=== PATIENT | male | born 1980 | race Hispanic/Latino ===

== ENCOUNTER 2024-01-02 11:14 | Emergency (ER) | payer SELFPAY ==
--- OUTSIDE RECORDS SUMMARY | 2024-01-02 11:16 | XMS REPORT | Continuity of Care Document ---
Author Name Unknown Address [address] [place] [address]. 1 [address] [place], [place] [id number] [place] [address] [facility] Address [address] [place] [address] [address] [place] [address] Care Team Providers Care Moccasin Sewer Name Role Phone Unavailable Unavailable Unavailable Encounters Start Date/Time End Date/Time Encounter Type Admission Type Attending Clinicians [facility] Care Department Encounter ID Source 2023-10-11 10:27:17 2023-10-11 10:27:17 Outpatient [facility] 17 Dilip Elizabeth 2023-10-10 15:45:44 2023-10-10 15:45:44 Outpatient [facility] 16 Dilip Elizabeth
--- NOTE | 2024-01-02 13:39 | RAD REPORT ---
EXAM DESCRIPTION: RAD - Chest Single View - 01/02/2024 1:34 pm CLINICAL HISTORY: SWELLING Chest pain. COMPARISON: <Comparisons> FINDINGS: Portable technique limits examination quality. The lungs are grossly clear. The heart is normal in size. No displaced fractures. IMPRESSION: No acute intrathoracic process suspected.
[2024-01-02 15:00] LABS: Urine Bilirubin NEGATIVE (Negative); Urine Blood Negative (Negative); Urine Clarity Clear (Clear); Urine Color Light-Yellow (Yellow); Urine Glucose 1+ (Negative); Urine Ketones NEGATIVE (Negative); Urine Microscopic Reflex YN NO UMIC; Urine Nitrite NEGATIVE (Negative); Urine Protein NEGATIVE (Negative); Urine Urobilinogen Normal (Normal)
[2024-01-02 15:05] LABS: Absolute Eosinophils 0.5 K/uL (0-0.5); Absolute Monocytes 0.5 K/uL (0.1-1.3); Absolute Neutrophil 4.1 K/uL (1.8-8.0); Basophils % 0.7 % (0-1.3); Eosinophils % 6.3 % (0-4.4); Hematocrit 45.4 % (39.6-49.0); Hemoglobin 15.4 g/dL (13.6-17.9); Lymphocytes % 28.4 % (15.3-44.8); MCH 28.3 pg (27.0-35.0); MCHC 33.9 g/dL (32.0-36.0); MCV 83.5 fL (80-100); MPV 8.3 fL (7.6-11.3); Monocytes % 7.2 % (3.3-12.3); Neutrophils % 57.4 % (41.7-73.7); Platelets 260 thou/uL (152-406); RBC Red Blood Cell Count 5.44 M/uL (4.33-5.43); Red Cell Distribution Width 13.9 % (12.1-15.2)
[2024-01-02 15:23] LABS: Albumin 3.7 g/dL (3.4-5.0); Albumin/Globulin Ratio 0.9 (1.1-1.8); Anion Gap 5.5 mEq/L (5.0-15.0); Bilirubin Direct 0.1 mg/dL (0-0.2); Bilirubin Indirect, Calculated 0.2 mg/dL (0.2-0.8); Bilirubin Total 0.3 mg/dL (0.2-1.0); Magnesium 2.3 mg/dL (1.6-2.4); Potassium 3.5 mEq/L (3.5-5.1); Protein, Total 7.7 g/dL (6.4-8.2); Troponin High Sensitivity 4.9 pg/mL (<58.9)
--- NOTE | 2024-01-02 16:01 | ER ---
Nurse's Notes [facility] Name: Claudy Mauro Age: 43 yrs Sex: Male : 1980 Arrival Date: 01/02/2024 Time: 11:14 Bed 16 Private MD: Diagnosis: Dizziness and giddiness Presentation: 01/01 11:35 Chief complaint: Patient states: Swelling to hands/feet and body since Monday. ll1 +fatigue, + dizzy, no fever. Coronavirus screen: Client denies travel out of the [place] in the last 14 days. At this time, the client does not indicate any symptoms associated with coronavirus-19. Ebola Screen: Patient denies travel to an Ebola-affected area in the 21 days before illness onset. Initial Sepsis Screen: Does the patient meet any 2 criteria? No. Patient's initial sepsis screen is negative. Does the patient have a suspected source of infection? No. Patient's initial sepsis screen is negative. Risk Assessment: Do you want to hurt yourself or someone else? Patient reports no desire to harm self or others. Onset of symptoms was December 31, 2023. 11:35 Method Of Arrival: Ambulatory ll1 11:35 Acuity: KIMBERLY 3 ll1 Triage Assessment: 11:30 General: Appears in no apparent distress. uncomfortable, Behavior is calm, cooperative. rs5 Historical: - Allergies: 11:35 No Known Allergies; ll1 - PMHx: 11:35 None; ll1 - PSHx: 11:35 None; ll1 - Immunization history:: Adult Immunizations up to date. - Social history:: Smoking status: Patient reports the use of cigarette tobacco products, smokes .3 packs per day. Screenin:30 [facility] ED Fall Risk Assessment (Adult) History of falling in the last 3 months, rs5 including since admission No falls in past 3 months (0 pts) Confusion or Disorientation No (0 pts) Intoxicated or Sedated No (0 pts) Impaired Gait No (0 pts) Mobility Assist Device Used No (0 pt) Altered Elimination No (0 pt) Score/Fall Risk Level 0 - 2 = Low Risk Oriented to surroundings, Maintained a safe environment. Abuse screen: Denies threats or abuse. Nutritional screening: No deficits noted. Tuberculosis screening: No symptoms or risk factors identified. Assessment: 14:16 Reassessment: Pt arrived in room. rs5 14:17 General: Appears in no apparent distress. uncomfortable, Behavior is calm, cooperative. rs5 Pain: Complains of pain in generalized Pain currently is 3 out of 10 on a pain scale. Quality of pain is described as aching, Is continuous. Neuro: Level of Consciousness is awake, alert, obeys commands, Oriented to person, place, time, situation. Cardiovascular: Patient's skin is warm and dry. Rhythm is regular. Respiratory: Airway is patent Respiratory effort is even, unlabored, Respiratory pattern is regular, symmetrical. GI: Abdomen is round non-distended, Abd is soft and non tender X 4 quads. : No signs and/or symptoms were reported regarding the genitourinary system. EENT: No signs and/or symptoms were reported regarding the EENT system. Derm: Skin is intact, Skin is pink, warm \\T\\ dry. Musculoskeletal: Circulation, motion, and sensation intact. Range of motion: intact in all extremities. 15:20 Reassessment: No changes from previously documented assessment. rs5 16:02 Reassessment: Pt states "I feel better now and I want to leave" provider notified. rs5 16:03 Reassessment: Provider at bedside. rs5 Vital Signs: 11:35 BP 136 / 97; Pulse 104; Resp 18; Temp 97.7; Pulse Ox 99% ; Weight 104.33 kg; Height 5 ll1 ft. 2 in. ; Pain 8/10; 16:00 BP 133 / 91; Pulse 89; Resp 18; Pulse Ox 99% on R/A; rs5 11:35 Body Mass Index 42.07 (104.33 kg, 157.48 cm) ll1 11:35 Pain Scale: Adult ll1 ED Course: 11:17 Patient arrived in ED. mg5 11:35 Arm band placed on. ll1 11:37 Triage completed. ll1 12:27 Rhianna Vaz FNP-C is PHCP. kb 12:27 Phoenix Tran MD is Attending Physician. kb 13:00 No provider procedures requiring assistance completed. rs5 13:35 Chest Single View XRAY In Process Unspecified. EDMS 13:35 Inserted saline lock: 20 gauge in left antecubital area, using aseptic technique. rs5 14:06 Patient placed in an exam room, on a stretcher. ss 14:09 Tito Dueñas, RN is Primary Nurse. rs5 15:55 IV discontinued, intact, bleeding controlled, No redness/swelling at site. Pressure rs5 dressing applied. Administered Medications: 19:25 Not Given (Patient Refused): ns 0.9% 1000 ml IV at 1000 ml once rs5 Outcome: 15:55 AMA AMA form signed rs5 16:01 Discharge ordered by . kb 16:10 Patient left the ED. rs5 Signatures: Dispatcher [employer] EDMS Rhianna Vaz, INTERNET SPECIALIST-C INTERNET SPECIALIST-Sugey Moe RN RN ss Salma Schultz RN RN ll1 Tito Dueñas, RN RN rs5 Christine Kothari mg5
--- NOTE | 2024-01-02 16:01 | EDPHYS ---
Physician Documentation [facility] Name: Claudy Mauro Age: 43 yrs Sex: Male : 1980 Arrival Date: 01/02/2024 Time: 11:14 Bed 16 Private MD: ED Physician Phoenix Tran HPI: 01/01 14:01 This 43 yrs old Male presents to ER via Ambulatory with complaints of Feet kb Swelling, Hand Swelling. 14:01 Pt is a 43 year old male who presents for swelling to hands and feet and dizziness that kb started 3 days ago. Denies chest pain, shortness of breath, fever, n/v/d. States he has had swelling like this in the past, but not the dizziness. Reports dizziness occurs when he changes positions (sitting to standing) and resolved after being in the same position. Historical: - Allergies: 11:35 No Known Allergies; ll1 - PMHx: 11:35 None; ll1 - PSHx: 11:35 None; ll1 - Immunization history:: Adult Immunizations up to date. - Social history:: Smoking status: Patient reports the use of cigarette tobacco products, smokes .3 packs per day. ROS: 14:02 Constitutional: As per HPI kb Exam: 14:02 Constitutional: This is a well developed, well nourished patient who is awake, alert, kb and in no acute distress. Head/Face: Normocephalic, atraumatic. ENT: Moist Mucous membranes Cardiovascular: Regular rate Respiratory: Respirations even and unlabored. No increased work of breathing. Talking in full sentences Abdomen/GI: Soft, non-tender. No distention Skin: Warm, dry with normal turgor. Normal color. MS/ Extremity: Pulses equal, no cyanosis. Neurovascular intact. Full, normal range of motion. Neuro: Awake and alert, GCS 15, oriented to person, place, time, and situation. Moves all extremities. Normal gait. 14:02 Musculoskeletal/extremity: Extremities: grossly normal except: noted in the right hand, kb left hand, right foot and left foot: swelling, ROM: intact in all extremities, Circulation is intact in all extremities. Sensation intact. Weight bearing: able to fully bear weight, 15:05 ECG was reviewed by the Attending Physician. kb Vital Signs: 11:35 BP 136 / 97; Pulse 104; Resp 18; Temp 97.7; Pulse Ox 99% ; Weight 104.33 kg; Height 5 ll1 ft. 2 in. ; Pain 8/10; 16:00 BP 133 / 91; Pulse 89; Resp 18; Pulse Ox 99% on R/A; rs5 11:35 Body Mass Index 42.07 (104.33 kg, 157.48 cm) ll1 11:35 Pain Scale: Adult ll1 MDM: 12:27 Patient medically screened. kb 14:02 Data reviewed: vital signs, nurses notes. kb 16:02 Differential diagnosis: CHF, dehydration, electrolyte imbalance. ED course: pt elected kb to leave room prior to discussing results of diagnostics and discharge instructions. 01/01 12:54 Order name: Basic Metabolic Panel; Complete Time: 15:36 kb 01/01 12:54 Order name: CBC with Diff; Complete Time: 15:10 kb 01/01 12:54 Order name: Hepatic Function; Complete Time: 15:36 kb 01/01 12:54 Order name: Magnesium; Complete Time: 15:36 kb 01/01 12:54 Order name: Troponin High Sensitivity; Complete Time: 15:36 kb 01/01 12:54 Order name: Urinalysis w/ reflexes; Complete Time: 15:03 kb 01/01 12:54 Order name: Chest Single View XRAY; Complete Time: 13:42 kb 01/01 12:54 Order name: Cardiac monitoring; Complete Time: 19:25 kb 01/01 12:54 Order name: EKG - Nurse/Tech; Complete Time: 15:08 kb 01/01 12:54 Order name: IV Saline Lock; Complete Time: 19:25 kb 01/01 12:54 Order name: Labs collected and sent; Complete Time: 19:25 kb 01/01 12:54 Order name: NPO; Complete Time: 19:25 kb 01/01 12:54 Order name: O2 Per Protocol; Complete Time: 19:25 kb 01/01 12:54 Order name: O2 Sat Monitoring; Complete Time: 19:25 kb 01/01 12:54 Order name: Orthostatics; Complete Time: 19:25 kb 01/01 15:04 Order name: Labs - recollect needed: recollect light blue top; Complete Time: 15:54 bd EC:05 Rate is 90 beats/min. Rhythm is regular. QRS [place] is Normal. WA interval is normal at kb 124 msec. QRS interval is normal at 100 msec. QT interval is normal at 447 msec. Administered Medications: 19:25 Not Given (Patient Refused): ns 0.9% 1000 ml IV at 1000 ml once rs5 Disposition Summary: 01/02/24 16:01 Discharge Ordered Notes: Location: Home kb Condition: Stable kb Diagnosis - Dizziness and giddiness kb Followup: kb - With: Emergency Department - When: As needed - Reason: Worsening of condition Followup: kb - With: Private Physician - When: 2 - 3 days - Reason: Recheck today's complaints, Continuance of care, Re-evaluation by your physician Discharge Instructions: - Discharge Summary Sheet kb - Dehydration, Adult, [id number] kb - Dizziness, [id number] kb Forms: - Medication Reconciliation Form kb - Thank You Letter kb - Antibiotic Education kb - Prescription Opioid Use kb - Patient Portal Instructions kb - Leadership Thank You Letter kb Signatures: Dispatcher [employer] [facility] Rhianna Vaz, TANIKA-C CUSTOMER CARE TEAM COACH-Brina Guzman Lynsay, RN RN ll1 Tito Dueñas RN rs5 Corrections: (The following items were deleted from the chart) 12:55 12:55 Chest Single View+RAD.RAD.BRZ ordered. [facility] 14:03 14:02 Constitutional: This is a well developed, well nourished patient who is awake, kb alert, and in no acute distress. Head/Face: Normocephalic, atraumatic. ENT: Moist Mucous membranes Cardiovascular: Regular rate Respiratory: Respirations even and unlabored. No increased work of breathing. Talking in full sentences Abdomen/GI: Soft, non-tender. No distention Skin: Warm, dry with normal turgor. Normal color. MS/ Extremity: Pulses equal, no cyanosis. Neurovascular intact. Full, normal range of motion. Neuro: Awake and alert, GCS 15, oriented to person, place, time, and situation. Moves all extremities. Normal gait. kb
[2024-01-02 16:36] VITALS: BP 136/97; TEMP 97.7; O2SAT 99
--- NOTE | 2024-01-03 12:36 | EKG ---
Test Date: 2024-01-02 Test Time: 14:34:45 Stop Attacher: VALENTIN MEASUREMENT RESULTS: Intervals: Rate: 90 AL: 124 QRSD: 100 QT: 366 QTc: 447 Eddy: P: 16 AL: 124 QRS: 43 T: -7 INTERPRETIVE STATEMENTS: Normal sinus rhythm Normal ECG Compared to ECG 06/10/2004 20:49:00 T-wave abnormality no longer present Electronically Signed On 01-03-24 12:33:26 CDT by Fidencio Ch
== END 2024-01-02 16:10 | disposition home or self-care (01) ==
LOC: ER 11:14
DX: R42 Dizziness and giddiness (principal)
CPT/HCPCS: 36415; 71045; 80048; 80076; 81003; 83735; 84484; 85025; 93005; 99283

== ENCOUNTER 2024-07-05 11:50 | Emergency (ER) | payer OTHER, SELFPAY ==
--- OUTSIDE RECORDS SUMMARY | 2024-07-05 11:52 | XMS REPORT | Continuity of Care Document ---
Author Name Unknown Address [address] [place] [address] Gideon. [address] Address [address] [place] [address] [address] [place] [address] Care Team Providers Care Pile Driving Setter Name Role Phone Unavailable Unavailable Unavailable Encounters Start Date/Time End Date/Time Encounter Type Admission Type Attending Clinicians [facility] Facility Care Department Encounter ID Source 2023-10-11 10:27:17 2023-10-11 10:27:17 Outpatient [facility] 17 Dilip Elizabeth 2023-10-10 15:45:44 2023-10-10 15:45:44 Outpatient [facility] 16 Dilip Elizabeth
--- NOTE | 2024-07-05 12:03 | EDPHYS ---
Physician Documentation [facility] Name: Claudy Mauro Age: 44 yrs Sex: Male : 1980 Arrival Date: 07/05/2024 Time: 11:50 Bed IW2 Private MD: ED Physician Ramone Yang HPI: 07/05 15:32 This 44 yrs old Male presents to ER via Ambulatory with complaints of Facial rt Swelling. 15:32 Patient presents to the ED with swelling to the left cheek around the area of a pimple. rt Patient states that he noticed that this morning, states that the swelling is somewhat gone down. Denies double vision, dental pain. Denies other acute complaints, symptoms are mild in severity, no other aggravating or alleviating factors.. Historical: - Allergies: :59 No Known Allergies; tm6 - PMHx: :59 None; tm6 - PSHx: 11:59 None; tm6 - Immunization history:: Client reports receiving the 2nd dose of the Covid vaccine. - Infectious Disease History:: Denies. - Social history:: Smoking status: Reported history of juuling and/or vaping. Patient/guardian denies using alcohol. - Family history:: not pertinent. ROS: 15:32 Constitutional: Negative for fever, chills, and weight loss, Cardiovascular: Negative rt for chest pain, palpitations, and edema, Respiratory: Negative for shortness of breath, cough, wheezing, and pleuritic chest pain, Abdomen/GI: Negative for abdominal pain, nausea, vomiting, diarrhea, and constipation, Neuro: Negative for headache, weakness, numbness, tingling, and seizure, Exam: 15:32 Constitutional: This is a well developed, well nourished patient who is awake, alert, rt and in no acute distress. Head/Face: Normocephalic, atraumatic. Cardiovascular: Regular rate and rhythm with a normal S1 and S2. No gallops, murmurs, or rubs. Normal PMI, no JVD. No pulse deficits. Respiratory: Lungs have equal breath sounds bilaterally, clear to auscultation and percussion. No rales, rhonchi or wheezes noted. No increased work of breathing, no retractions or nasal flaring. 15:32 Head/face: Mild swelling noted to the left cheek, no areas of fluctuance. 15:32 Eyes: No conjunctival injection, extraocular muscles are intact. Vital Signs: 11:58 Pulse 93; Resp 17; Temp 97.8(O); Pulse Ox 97% on R/A; Weight 108.86 kg; Height 5 ft. 1 tm6 in. ; Pain 7/10; 11:58 BP 123 / 84; MAP 95 mmHg; tm6 11:58 Body Mass Index 45.35 (108.86 kg, 154.94 cm) tm6 11:58 Pain Scale: Adult tm6 MDM: 12:02 Patient medically screened. rt 15:32 Differential Diagnosis Facial cellulitis. Data reviewed: vital signs, nurses notes. rt Test considered but Not performed: CT: No physical exam findings consistent with orbital cellulitis, drainable abscess, CT scan is not indicated. Counseling: I had a detailed discussion with the patient and/or guardian regarding the historical points, exam findings, and any diagnostic results supporting the discharge/admit diagnosis, the need for outpatient follow up, to return to the emergency department if symptoms worsen or persist or if there are any questions or concerns that arise at home. Administered Medications: No medications were administered Disposition Summary: 07/05/24 12:03 Discharge Ordered Notes: Location: Home rt Problem: new rt Symptoms: have improved rt Condition: Stable rt Diagnosis - Facial cellulitis rt Followup: rt - With: Private Physician - When: 2 - 3 days - Reason: Discharge Instructions: - Discharge Summary Sheet rt - Cellulitis, Adult rt Forms: - Medication Reconciliation Form rt - Antibiotic Education rt - Prescription Opioid Use rt - Patient Portal Instructions rt - Leadership Thank You Letter rt Prescriptions: - Doxycycline Monohydrate 100 mg Oral Tablet - take 1 tablet ORAL route every 12 hours for 10 days; 20 tablet; Refills: 0, rt Product Selection Permitted Signatures: Ramone Yang MD MD rt Meme Casper RN RN tm6
--- NOTE | 2024-07-05 12:03 | ER ---
Nurse's Notes [facility] Name: Claudy Mauro Age: 44 yrs Sex: Male : 1980 Arrival Date: 07/05/2024 Time: 11:50 Bed IW2 Private MD: Diagnosis: Facial cellulitis Presentation: 07/05 11:58 Chief complaint: Patient states: woke up with left sided facial swelling. When I put tm6 pressure on it, it hurts. Coronavirus screen: Client denies travel out of the [place] in the last 14 days. Ebola Screen: Patient negative for fever greater than or equal to 101.5 degrees Fahrenheit, and additional compatible Ebola Virus Disease symptoms Patient denies exposure to infectious person. Patient denies travel to an Ebola-affected area in the 21 days before illness onset. No symptoms or risks identified at this time. Initial Sepsis Screen: Does the patient meet any 2 criteria? No. Patient's initial sepsis screen is negative. Does the patient have a suspected source of infection? No. Patient's initial sepsis screen is negative. Risk Assessment: Do you want to hurt yourself or someone else? Patient reports no desire to harm self or others. Onset of symptoms was July 05, 2024. 11:58 Method Of Arrival: Ambulatory tm6 11:58 Acuity: KIMBERLY 4 tm6 Triage Assessment: 11:59 General: Appears in no apparent distress. Behavior is calm, cooperative. Pain: tm6 Complains of pain in left cheek Pain currently is 7 out of 10 on a pain scale. Pain began 4 hours ago. EENT: No signs and/or symptoms were reported regarding the EENT system. Neuro: Level of Consciousness is awake, alert, obeys commands, Oriented to person, place, time, situation. Cardiovascular: Patient's skin is warm and dry. Respiratory: Airway is patent Respiratory effort is even, unlabored, Respiratory pattern is regular, symmetrical. GI: No signs and/or symptoms were reported involving the gastrointestinal system. Abdomen is round. : No signs and/or symptoms were reported regarding the genitourinary system. Derm: swelling on left cheek. Musculoskeletal: Swelling present in left cheek. Historical: - Allergies: 11:59 No Known Allergies; tm6 - PMHx: 11:59 None; tm6 - PSHx: 11:59 None; tm6 - Immunization history:: Client reports receiving the 2nd dose of the Covid vaccine. - Infectious Disease History:: Denies. - Social history:: Smoking status: Reported history of juuling and/or vaping. Patient/guardian denies using alcohol. - Family history:: not pertinent. Screenin:01 [facility] ED Fall Risk Assessment (Adult) History of falling in the last 3 months, tm6 including since admission No falls in past 3 months (0 pts) Confusion or Disorientation No (0 pts) Intoxicated or Sedated No (0 pts) Impaired Gait No (0 pts) Mobility Assist Device Used No (0 pt) Altered Elimination No (0 pt) Score/Fall Risk Level 0 - 2 = Low Risk Oriented to surroundings, Maintained a safe environment, Educated pt \T\ family on fall prevention, incl call for assistance when getting out of bed. Abuse screen: Denies threats or abuse. Denies injuries from another. Nutritional screening: No deficits noted. Tuberculosis screening: No symptoms or risk factors identified. Assessment: 12:01 Reassessment: see triage assessment. tm6 Vital Signs: 11:58 Pulse 93; Resp 17; Temp 97.8(O); Pulse Ox 97% on R/A; Weight 108.86 kg; Height 5 ft. 1 tm6 in. ; Pain 7/10; 11:58 BP 123 / 84; MAP 95 mmHg; tm6 11:58 Body Mass Index 45.35 (108.86 kg, 154.94 cm) tm6 11:58 Pain Scale: Adult tm6 ED Course: 11:53 Patient arrived in ED. mg5 11:54 Ramone Yang MD is Attending Physician. rt 11:59 Triage completed. tm6 11:59 Arm band placed on right wrist. tm6 12:01 Patient has correct armband on for positive identification. Provided Education on:. tm6 12:01 No provider procedures requiring assistance completed. tm6 12:33 Patient did not have IV access during this emergency room visit. ap3 Administered Medications: No medications were administered Medication: 12:33 VIS not applicable for this client. ap3 Outcome: 12:03 Discharge ordered by . rt 12:33 Discharged to home ambulatory, ap3 12:33 Condition: good 12:33 Discharge instructions given to patient, Instructed on discharge instructions, follow up and referral plans. medication usage, Demonstrated understanding of instructions, follow-up care, medications, Prescriptions given X 1, 12:33 Patient left the ED. ap3 Signatures: Giovanna Felix RN RN ap3 Ramone Yang MD MD rt [place], [place] mg5 Meme Casper RN RN tm6
[2024-07-05 13:49] VITALS: BP 123/84; TEMP 97.8; O2SAT 97
== END 2024-07-05 12:33 | disposition home or self-care (01) ==
LOC: ER 11:50
DX: L03.211 Cellulitis of face (principal)
CPT/HCPCS: 99283